=== PATIENT | female | born 1970 | race African-American/Black ===

== ENCOUNTER 2022-06-25 14:12 | Emergency (ER) | payer BC ==
[~2022-06-25] VITALS: Ht 172.7 cm; Wt 50.0 kg
[2022-06-25 14:25] VITALS: BP 102/71
== END 2022-06-25 22:24 | disposition left against medical advice (07) ==
LOC: ER 14:12
DX: Z53.21 Procedure and treatment not carried out due to patient leaving prior to being seen by health care provider (principal)